=== PATIENT | male | born 2000 | race Caucasian/White ===

== ENCOUNTER 2024-11-10 06:59 | Emergency (ER) | payer SELFPAY ==
[~2024-11-10] VITALS: Ht 165.1 cm; Wt 57.5 kg
--- NOTE | 2024-11-10 07:40 | RADIOLOGY REPORT ---
EXAM: XR Chest, 1 View CLINICAL INDICATION: CP TECHNIQUE: Frontal view of the chest. COMPARISON: None FINDINGS: LUNGS AND PLEURAL SPACES: Unremarkable. No consolidation. No pneumothorax. HEART: Unremarkable. No cardiomegaly. MEDIASTINUM: Unremarkable. Normal mediastinal contour. BONES/JOINTS: Unremarkable. No acute fracture. OTHER FINDINGS: . None. IMPRESSION: No acute cardiopulmonary process.
--- NOTE | 2024-11-10 08:07 | Physician Documentation ---
History of Present Illness ~ Chief Complaint: Cough Stated Complaint: SINUS INFECTION/DIFFICULTY BREATHING Time Seen by MD: 07:15 Mode of Arrival: POV HPI 24-year-old male presenting for some chest pain that has been ongoing for the past couple of days. He states that he has been sick with a cough and sore throat during this time as well. Yesterday today he noticed that he is having some left-sided sharp chest pain as well that will come and go. It will tend to worsen when he takes deep breaths or coughs. She denies any fever, chills or any other associated symptoms. Medication Reconciliation Allergies: Coded Allergies: No Known Allergies (Unverified , 11/10/24) Past Medical History Past Medical History: No Pertinent History Review of Systems All Other Systems at this time: Reviewed and Negative Physical Exam Vital Signs: Temperature: 97.6, Source: Temporal, Heart Rate: 104, Respiratory Rate: 18, BP: 147/93, Pulse Oximetry: 99, Weight: 57.500 Physical Exam I have reviewed the triage vitals. CONST: Well developed and well nourished. In no acute distress HENT: Head Atraumatic EYES: Pupils are equal, round and reactive to light. Normal conjunctiva NECK: Normal range of motion. Supple. CARDIO: Normal rate and regular rhythm. No murmurs, rubs, or gallops. S1, S2. PULM/CHEST: No respiratory distress. Lungs clear to auscultation. No wheeze ABD: Soft and nontender. Nondistended. Bowel sounds normal. No guarding. : Exam deferred MSK: No edema. No deformity. NEURO: Alert and oriented to person, place and time. Moving all extremities SKIN: Warm and dry. PSYCH: Normal mood and affect. Good eye contact. Progress Results/Orders Results/Orders Orders - JOLANTA HUNTER MD Chest,Single View (11/10/24 07:07) Cult Throat + R/O Beta Strep (11/10/24 08:11) Electrocardiogram (11/10/24 ) Completed Orders - JOLANTA HUNTER MD Chest,Single View (11/10/24 07:07) Strep A Rapid (11/10/24 07:07) Cbc/Diff (11/10/24 08:12) BMP (11/10/24 08:12) Troponin (Single) (11/10/24 08:12) Vital Signs 11/10/24 11/10/24 07:03 07:13 Temp 97.6 Pulse 104 Resp 18 18 B/P (MAP) 147/93 Pulse Ox 99 Laboratory Tests Test 11/10/24 07:50 11/10/24 08:37 Group A Streptococcus Rapid Negative White Blood Count 11.5 H Red Blood Count 5.37 Hemoglobin 15.3 Hematocrit 46.3 Mean Corpuscular Volume 86.2 Mean Corpuscular Hemoglobin 28.6 Mean Corpuscular Hemoglobin Concent 33.1 Red Cell Distribution Width 14.2 Platelet Count 243 Mean Platelet Volume 8.9 Neutrophils (%) (Auto) 76.1 H Lymphocytes (%) (Auto) 14.1 L Monocytes (%) (Auto) 8.9 Eosinophils (%) (Auto) 0.7 Basophils (%) (Auto) 0.2 Neutrophils # (Auto) 8.8 H Lymphocytes # (Auto) 1.6 Monocytes # (Auto) 1.0 H Eosinophils # (Auto) 0.1 Basophils # (Auto) 0.0 CBC Comment Sodium Level 140 Potassium Level 4.0 Chloride Level 104 Carbon Dioxide Level 28.7 Anion Gap 7 L Blood Urea Nitrogen 13 Creatinine 0.68 Estimated GFR/1.73 m2 > 90 BUN/Creatinine Ratio 19.1 Glucose Level 92 Calcium Level 9.2 Troponin I High Sensitivity < 4 L Albumin 4.2 Chemistry Comments EKG/XRAY/CT/US/VASC/MRI EKG : Additional Comment EKG as interpreted by me shows normal sinus rhythm with a rate of 80 beats per minute, no ischemia, normal axis Chest X-Ray : Additional Comments EXAM: XR Chest, 1 View CLINICAL INDICATION: CP TECHNIQUE: Frontal view of the chest. COMPARISON: None FINDINGS: LUNGS AND PLEURAL SPACES: Unremarkable. No consolidation. No pneumothorax. HEART: Unremarkable. No cardiomegaly. MEDIASTINUM: Unremarkable. Normal mediastinal contour. BONES/JOINTS: Unremarkable. No acute fracture. OTHER FINDINGS: . None. IMPRESSION: No acute cardiopulmonary process. Medical Decision Making Differential Diagnosis 24-year-old male presenting with a viral upper respiratory infection and likely costochondritis from the coughing. Patient had an EKG which was unremarkable. His lab workup is normal as well. Chest x-ray was unremarkable as well. I explained to the patient that his excessive coughing from his viral upper respiratory infection has likely caused some spasming of his chest wall muscles. I advised him that this is a dangerous and that it should resolve on its own once his upper respiratory infection resolves as well. I advised him on symptomatic treatments as well as plenty of rest. I recommended ibuprofen, Tylenol as needed for pain. Also Mucinex DM or Delsym cough syrup for the cough. Monitor for improvement and resolution and follow up with PCP if not i mproving. Return to the ED for any acutely worsening symptoms. Departure Disposition: HOME / SELF CARE / HOMELESS Impression: Primary Impression: Viral upper respiratory infection Additional Impression: Costochondritis Condition: Improved Discharge Instructions: Upper Respiratory Infection, Adult Referrals: NO PRIMARY CARE PROVIDER (PCP) Comments Plenty of fluids and plenty of rest. It can take Mucinex DM for cough and mucus. Recommend ibuprofen or Tylenol as needed for pain. Monitor for improvement and resolution. Follow up with primary care physician and return to the ED with worsening symptoms. Signature Scribe Signature: 1 Attestation: 1 JOLANTA HUNTER MD Nov 10, 2024 08:06
[2024-11-10 08:11] LABS: STREP A SCREEN NEGATIVE (Neg)
[2024-11-10 09:26] LABS: BASOPHILS % (AUTO) 0.2 % (0-1); EOSINOPHILS # (AUTO) 0.1 X10'3 (0-0.9); EOSINOPHILS % (AUTO) 0.7 % (0-6); HEMATOCRIT 46.3 % (42.0-52.0); HEMOGLOBIN 15.3 g/dl (14.0-17.9); LYMPHOCYTES # (AUTO) 1.6 X10'3 (1.1-4.8); LYMPHOCYTES % (AUTO) 14.1 % (21-51); MEAN CORPUSCULAR HEMOGLOBIN 28.6 PG (27.0-31.0); MEAN CORPUSCULAR HGB CONC 33.1 g/dL (33.0-36.5); MEAN CORPUSCULAR VOLUME 86.2 FL (78-98); MEAN PLATELET VOLUME 8.9 FL (7.4-10.4); MONOCYTES % (AUTO) 8.9 % (2-12); NEUTROPHILS # (AUTO) 8.8 X10'3 (1.8-7.7); NEUTROPHILS % (AUTO) 76.1 % (42-75); PLATELET COUNT 243 X10'3 (140-440); RED BLOOD COUNT 5.37 X10'6 (4.70-6.10); RED CELL DISTRIBUTION WIDTH 14.2 % (11.5-14.5); WHITE BLOOD COUNT 11.5 X10'3 (4.5-11.0)
[2024-11-10 09:45] LABS: ALBUMIN 4.2 G/DL (3.4-5.0); ANION GAP 7 (8-16); BLOOD UREA NITROGEN 13 MG/DL (7-18); BUN/CREATININE RATIO 19.1 (10.0-20.0); CALCIUM 9.2 MG/DL (8.5-10.1); CHLORIDE 104 MMOL/L (99-107); CREATININE 0.68 MG/DL (0.60-1.10); GLUCOSE 92 MG/DL (70-104); SODIUM 140 MMOL/L (135-145); TOTAL CARBON DIOXIDE 28.7 MMOL/L (24-32); eCRCL 134 ML/MIN; eGFR > 90 ML/MIN
--- NOTE | 2024-11-10 12:13 | ELECTROCARDIOGRAPH REPORT ---
[facility] Test Date: 2024-11-10 Test Time: 08:54:32 Pat Name: WES MARTINEZ Department: EMERGENCY ROOM Room: Gender: M Scratcher: : 2000 Requested By: JOLANTA HUNTER Order Number: [id number] Reading MD: Dr. Jarad Frazier Measurements Intervals Radnor Rate: 80 P: 67 AL: 134 QRS: -10 QRSD: 102 T: 43 QT: 383 QTc: 442 Interpretive Statements Sinus rhythm RSR' in V1 or V2, probably normal variant Electronically Signed On 11-10-2024 19:02:[address] Jarad Frazier Please click the below link to view image of tracing.
[2024-11-10 13:40] VITALS: BP 121/78; PULSE 74; RESP 12; TEMP 98.6; O2SAT 99
== END 2024-11-10 12:05 | disposition home or self-care (01) ==
LOC: ER 07:00
DX: J06.9 Acute upper respiratory infection, unspecified (principal); B97.89 Other viral agents as the cause of diseases classified elsewhere; M94.0 Chondrocostal junction syndrome [Tietze]
CPT/HCPCS: 36415; 71045; 80048; 84484; 85025; 87081; 87880; 93005; 99285